=== PATIENT | female | born 1965 | race Two or more races ===

== ENCOUNTER → 2018-12-20 | Outpatient (CLI) | payer OTHER ==
[~2018-12-20] MED LIST: IOPAMIDOL (ISOVUE-300) 100 ML BTL ONE
== END ==
LOC: FIMAGING 09:37
PROVIDERS: ATTEND Otolaryngology
DX: K11.9 Disease of salivary gland, unspecified (principal)
CPT/HCPCS: Q9967

== ENCOUNTER 2018-12-25 11:30 | Day surgery (SDC) | payer OTHER ==
[2018-12-25] MEDS ORDERED: LR 1,000 ML IV ONE (11:55)
[2018-12-25] MEDS ORDERED: ceFAZolin 2 GM/DEXTROSE 100 ML IV ONE (12:14)
--- NOTE | 2018-12-25 12:16 | PDHPUP ---
History & Physical Update H&P update statement: This history and physical update is based on an assessment of the patient which was completed after admission or registration (within 24 hours), but prior to the surgery/procedure. H&P update: no change in patient's condition since H&P completed, changes noted (pt c complaints of HL in R ear. otoscopy revealed CI AU. Will do CI removal at same time as R parotidectomy w FN dissection)
--- NOTE | 2018-12-25 12:48 | PDANEPAE ---
ANE History of Present Illness R parotidectomy ANE Past Medical History - Cardiovascular History Hx Hypertension: No Hx Arrhythmias: No Hx Chest Pain: No Hx Coronary Artery / Peripheral Vascular Disease: No Hx CHF / Valvular Disease: No Hx Palpitations: No - Pulmonary History Hx COPD: No Hx Asthma/Reactive Airway Disease: No Hx Recent Upper Respiratory Infection: No Hx Oxygen in Use at Home: No Hx Sleep Apnea: No Sleep Apnea Screening Result - Last Documented: Negative - Neurologic History Hx Cerebrovascular Accident: No Hx Seizures: No Hx Dementia: No - Endocrine History Hx Diabetes: No - Renal History Hx Renal Disorders: No - Liver History Hx Hepatic Disorders: No - Neurological & Psychiatric Hx Hx Neurological and Psychiatric Disorders: No - Cancer History Hx Cancer: No - Congenital Disorder History Hx Congenital Disorders: No - GI History Hx Gastrointestinal Disorders: No - Other Health History Other Health History: none - Chronic Pain History Chronic Pain: No - Surgical History Prior Surgeries: d&c ANE Review of Systems Review of Systems: - Exercise capacity METS (RN): 4 METS ANE Patient History - Allergies Allergies/Adverse Reactions: adhesive Allergy (Verified 12/04/18 15:44) Itching and sore - Home Medications Home medications: home medication list seen and reviewed Home Medications: Cholecalciferol Vit D3 [Vitamin D3 (*)] 1,000 units PO DAILY 11/30/18 [Last Taken 2 Weeks Ago ~12/11/18] Ibuprofen [Motrin (*)] 200 mg PO DAILY PRN 11/30/18 [Last Taken 2 Weeks Ago ~01/26] Marlissa Control 1 each PO DAILY 11/30/18 [Last Taken 12/25/18 07:30] - NPO status NPO Status: no food or drink >8 hours NPO Since - Liquids (Date): 12/25/18 NPO Since - Liquids (Time): 09:30 (coffee) NPO Since - Solids (Date): 12/24/18 NPO Since - Solids (Time): 21:00 - Smoking Hx Smoking Status: Never smoked - Alcohol Use Alcohol Use: None - Family Anes Hx Family Anes Hx: none Family Hx Anesthesia Complications: none ANE Labs/Vital Signs - Vital Signs Blood Pressure: 140/89 Heart Rate: 73 Respiratory Rate: 16 O2 Sat (%): 98 Height: 162.56 cm Weight: 56.699 kg ANE Physical Exam - Airway Neck exam: FROM Mallampati Score: Class 1 Mouth exam: normal dental/mouth exam - Pulmonary Pulmonary: no respiratory distress - Cardiovascular Cardiovascular: regular rate and rhythym - ASA Status ASA Status: I ANE Anesthesia Plan Anesthesia Plan: general endotracheal anesthesia
[2018-12-25] MEDS ORDERED: MUPIROCIN 2% 22 GM OINT ONE (13:32)
[2018-12-25] MEDS ORDERED: LIDO/EPI 1% **Not for Epidural 20 ML MDV ONE (13:32)
[2018-12-25] MEDS ORDERED: REMIFENTANIL HCL 1 MG VIAL ONE (13:33)
[2018-12-25] MEDS ORDERED: fentaNYL 100 MCG/2 ML INJ ONE (13:33)
[2018-12-25] MEDS ORDERED: PROPOFOL/EMULSION 500 MG/50 ML BOTTLE IV ONE (13:33)
[2018-12-25] MEDS ORDERED: LIDOCAINE 2% 100 MG/5 ML SYR ONE (13:38)
[2018-12-25] MEDS ORDERED: ONDANSETRON 4 MG/2 ML VIAL ONE ×2 (13:38→17:10)
[2018-12-25] MEDS ORDERED: DEXAMETHASONE 4 MG/ML VIAL ONE ×2 (13:38)
[2018-12-25] MEDS ORDERED: ePHEDrine SULFATE 25 MG/5 ML SYR ONE (13:50)
[2018-12-25] MEDS ORDERED: LR 500 ML IV PRN (15:44)
[2018-12-25] MEDS ORDERED: MEPERIDINE 25 MG/0.5 ML AMP IVP PRN (15:44)
[2018-12-25] MEDS ORDERED: NALOXONE HCL 0.4 MG/ML INJ IVP PRN (15:44)
[2018-12-25] MEDS ORDERED: DEXAMETHASONE 4 MG/ML VIAL IVP PRN (15:44)
[2018-12-25] MEDS ORDERED: ALBUTEROL 3 ML DEYVIAL IH PRN (15:44)
[2018-12-25] MEDS ORDERED: fentaNYL 100 MCG/2 ML INJ IVP PRN (15:44)
[2018-12-25] MEDS ORDERED: oxyCODONE IR 5 MG TAB PO PRN (15:44)
[2018-12-25] MEDS ORDERED: PROMETHAZINE HCL 25 MG/ML INJ IVP PRN (15:44)
[2018-12-25] MEDS ORDERED: HYDROCODONE/APAP 5/325 TAB PO PRN (15:44)
[2018-12-25] MEDS ORDERED: METOCLOPRAMIDE 10 MG/2 ML VIAL IVP PRN (15:44)
[2018-12-25] MEDS ORDERED: LABETALOL HCL 5 MG/ML 20 ML MDV IVP PRN (15:44)
[2018-12-25] MEDS ORDERED: PHENYLEPHRINE HCL 100 MCG/ML SYR IVP PRN (15:44)
[2018-12-25] MEDS ORDERED: ONDANSETRON 4 MG/2 ML VIAL IVP PRN (15:44)
[2018-12-25] MEDS ORDERED: ACETAMINOPHEN 500 MG TAB PO PRN (15:44)
[2018-12-25] MEDS ORDERED: BACITRACIN ZINC 0.5 OZ OINTTUBE TP ONE ×2 (16:09→18:50)
--- NOTE | 2018-12-25 16:36 | POSTOPPROG ---
Post Op Note Date of Operation: 12/25/18 Surgeon: Sonali Ortega Lining Stitcher: Mariano Wilkes MD Anesthesiologist: Dilan May MD Anesthesia: GET(General Endotracheal) Pre-op Diagnosis: R superficial parotid tumor Post-op Diagnosis: same Procedure: R superficial partial parotidectomy with FN preservation, NIMS Findings: R inferior superficial tumor, FN intact Inf/Abcess present in the surg proc area at time of surgery?: No EBL: 50-100 Complications: none apparent Bowel Protocol: N/A Clean Closure Performed: Yes Drains: Stanley Knott Specimen(s): R superficial parotid
[2018-12-25] MEDS ORDERED: METOCLOPRAMIDE 10 MG/2 ML VIAL ONE (18:10)
--- NOTE | 2018-12-25 18:18 | POSTANESTH ---
Post Anesthetic Evaluation Cardiovascular Status: Normal, Stable Respiratory Status: Normal, Stable Level of Consciousness/Mental Status: Can Participate in Eval Pain Control: Adequate, Prn Tx Ordered Nausea/Vomiting Control: Adequate, Prn Tx Ordered Complications Possibly Related to Anesthesia: None Noted
[2018-12-25] MEDS ORDERED: HYDROGEN PEROXIDE 236 ML BOTTLE TP ONE (18:51)
[2018-12-25 19:40] VITALS: BP 121/78
--- NOTE | 2018-12-28 09:43 | GOP ---
[f rep st] OPERATIVE REPORT DATE OF OPERATION: 12/25/2018 SURGEON: Sonali Ortega MD GTA: Mariano Wilkes MD ANESTHESIA: General. PREOPERATIVE DIAGNOSIS: Right superficial parotid mass. POSTOPERATIVE DIAGNOSIS: Right superficial parotid mass. PROCEDURE PERFORMED: 1. Right partial superficial parotidectomy with facial nerve preservation. 2. Right facial nerve monitoring utilizing the Kineta NIM system. FINDINGS: The patient was found to have a fairly inferior and posterior right parotid mass. I used a retrograde approach to dissect out the nerve and remove the tumor. The facial nerve was stimulating at the end of the procedure. ESTIMATED BLOOD LOSS: Minimal. INDICATIONS: The patient is a very pleasant 53-year-old woman who has a history of a right neck mass. She was seen in clinic and an ultrasound as well as an FNA were done for a suspected right parotid mass. The FNA was not definitive but showed no malignant cells. This mass has been somewhat enlarging , and it was felt she would benefit from removal and for treatment as well as definitive pathologic analysis. Informed consent was obtained. DESCRIPTION OF PROCEDURE: The patient was first seen in the preoperative area, where informed consent was obtained. She was then brought back to the operating room, where Anesthesia sedated and intubated her. The facial nerve monitor was put in place and attached and confirmed to be monitoring correctly. The bed was turned 90 degrees. A shoulder roll was placed. She was prepped and draped in a sterile fashion. A universal time out protocol was performed. I initially marked out a modified Osiel incision on the right, and then electrocautery on a low setting with a needle tip was used to make a skin incision through the skin and subcutaneous tissues as well as through the platysma more inferiorly. Subplatysmal flaps were elevated inferiorly and this flap was continued superiorly up in a subfascial plane just overlying the parotid gland. The anterior flap was elevated up to the anterior border of the parotid and then Hamden hooks were used to hold this back. Posteriorly we elevated slight flaps as well and released the tragal cartilage from the surrounding fascial tissues, and then the earlobe was retracted back as well. I was able to find the external jugular vein as well as the great auricular nerve. The great auricular nerve was dissected out and was noted to be going directly into the parotid gland by the tumor and so the anterior branch of this was cut to give us better access. Once this was done, we then delineated the anterior border of the SCM and then I began to search for the marginal mandibular branch of the facial nerve at the angle of the mandible. This was able to be easily found and then we began our dissection, dissecting the marginal mandibular branch posteriorly and elevated some parotid tissue off this. There were actually 3 branches that were found and they all seemed to coincide with the lower division. These were each dissected out carefully using blunt dissection and then sharp dissection was used to divide the parotid tissue overlying this. The tumor was inferior enough that dissecting in this plane and at this level got us above the tumor. We continued dissecting out the nerve, and then once this had completely been dissected out and kept intact , the tumor was released from the underlying fascial tissues and from the posterior line 1 cm until it was completely released and removed. This was sent off for permanent pathology. At this point, all 3 branches of the facial nerve that we had traced the traced back up to the lower division were stimulating. The wound was irrigated out copiously with normal saline and then suctioned free. There was no significant active bleeding. The parotid tissue was closed in on itself to try to prevent any postoperative complications. Then , a piece of Surgicel was placed over the nerves and then a small 10-Mongolian drain was used to place in the wound and then it was exiting the posterior aspect of the skin just posterior to the incision. This was sutured into place using a 2-0 silk. The skin flaps were then reapproximated, closing the subcutaneous tissues and the subplatysmal flaps with a 3-0 Vicryl in interrupted fashion. I then closed the skin using a 5-0 nylon in a running fashion. The wound was cleaned and then bacitracin was applied. The drain was noted to be holding suction. Then, at this point some fluffs were placed over the area of the right parotid and angle of the mandible and then a Jobst dressing was placed for some pressure. At this point, the patient was turned back over to Anesthesia, where she was awoken and extubated, and taken to PACU in stable condition. There were no complications, and she tolerated the procedure well. COMPLICATIONS: None. /[id number]/MODL MTDD
== END 2018-12-25 19:27 | disposition home or self-care (01) ==
LOC: UNDOADMOB 11:30 → FSGY 11:30 → F3E 11:30 → EDSTATUS 12:45 → UNDODISOB 19:27 → FSGY 19:27
PROVIDERS: ATTEND Otolaryngology
PROC: 0CB80ZZ Excision of Right Parotid Gland, Open Approach (ICD-10-PCS; principal; 2018-12-25 13:00)
DX: D11.0 Benign neoplasm of parotid gland (principal)
CPT/HCPCS: J0690; J1100; J2001; J2405; J2704; J2765; J3010